=== PATIENT | female | born 2000 | race Caucasian/White ===

== ENCOUNTER 2023-08-05 22:41 | Emergency (ER) | payer BC, SELFPAY ==
[2023-08-05 22:41] VITALS: BP 151/96; PULSE 121; RESP 20; TEMP 36.7; O2SAT 98; BMI 33.8
--- NOTE | 2023-08-05 22:45 | ECG_ITS ---
APPROVED REPORT Exam: Resting ECG HR:101 bpm ECG Measurements Heart Rate 101 AXES HI 152 P 61 QRSd 97 QRS 57 QT 331 T 41 QTc 389 Conclusion SINUS TACHYCARDIA LOW QRS VOLTAGE IN PRECORDIAL LEADS [QRS DEFLECTION < 1.0 mV IN CHEST LEADS] INCOMPLETE RIGHT BUNDLE BRANCH BLOCK [90+ ms QRS DURATION, TERMINAL R IN V1/V2, 40+ ms S IN I/aVL/V4/V5/V6] ABNORMAL RHYTHM ECG UNCONFIRMED REPORT Electronically signed by : Aravind Barriga MD 08/06/2023 19:56:51
[2023-08-05 22:56] LABS: POC Glucose,Bedside 107 (70-110)
--- NOTE | 2023-08-05 22:58 | XR_ITS ---
PROCEDURE INFORMATION: Exam: XR Chest Exam date and time: 08/05/2023 11:29 PM Age: 22 years old Clinical indication: Other: Unresponsive TECHNIQUE: Imaging protocol: Radiologic exam of the chest. Views: 1 view. COMPARISON: No relevant prior studies available. FINDINGS: Lungs: Unremarkable. No consolidation. Pleural spaces: Unremarkable. No pleural effusion. No pneumothorax. Heart/Mediastinum: Unremarkable. No cardiomegaly. Bones/joints: Unremarkable for patient age. IMPRESSION: No acute findings.
[2023-08-05 23:28] LABS: VBG Base Excess 0.3 mmol/L (-2.4-2.3); VBG HCO3 26.2 mmol/L (23-30); VBG Oxygen Saturation 63.3 % (50-70); VBG PH 7.33 mmol/L (7.31-7.41); VBG PO2 32.2 mmol/L (28-40); VBG Total CO2 27.7 mmol/L (23-27)
[2023-08-05 23:30] LABS: VBG PCO2 50.4 mmol/L (35-51)
[2023-08-05 23:36] LABS: Acetone, Serum (Rapid) None Detected (None Detect)
[2023-08-05 23:39] LABS: Basophils % 0.3 % (0.1-2.0); Chloride 97 mmol/L (98-107); Eosinophils # 0.1 K/mm3 (0.0-0.4); Eosinophils % 0.7 % (0.1-12.0); Hematocrit 40.5 % (37.0-47.0); Hemoglobin 12.7 g/dL (12.2-16.2); Lymphocytes # 2.3 K/mm3 (0.7-4.5); Lymphocytes % 17.8 % (10-50); Mean Corpuscular HGB Conc 31.4 g/dL (31.8-35.4); Mean Corpuscular Hemoglobin 29.5 pg (27.0-31.2); Mean Platelet Volume 7.5 fl (7.4-10.4); Monocytes # 0.8 K/mm3 (0.1-1.0); Neutrophils # 9.8 K/mm3 (1.8-7.8); Neutrophils % 75.3 % (37.0-80.0); Platelet Count 309 K/mm3 (142-424); Red Blood Count 4.31 M/mm3 (4.20-5.40); Sodium 136 mmol/L (136-145)
[2023-08-05 23:40] LABS: Potassium 3.7 mmoL/L (3.5-5.1)
[2023-08-05 23:42] LABS: Alanine Aminotransferase 24 U/L (12-78); Alkaline Phosphatase 83 U/L (38-126); Anion Gap 13.7 mEq/L (5-15); Aspartate Amino Transferase 44 U/L (14-36); Bilirubin,Total 0.3 mg/dl (0.2-1.3); Blood Urea Nitrogen 11 mg/dl (7-17); Calcium 8.6 mg/dl (8.4-10.2); Carbon Dioxide 29 mmol/L (22.0-30.0); Creatinine Clearance Estimated 168 mL/min (50-200); Estimated Glomerular Filt Rate 106 ml/min (>60); GFR (African American) 128 ML/MIN (>60); Glucose 98 mg/dl (74-100)
[2023-08-05 23:43] LABS: Activated Partial Thrombo Time 25.6 seconds (22.8-30.6); Albumin Level 4.4 g/dl (3.5-5.0); Albumin/Globulin Ratio 1.6 (1.1-1.8); Globulin 2.7 g/dL (1.3-3.2); Lactic Acid 0.9 mmol/L (0.7-2.1); Lipase 59 U/L (23-300); Total Protein,Serum 7.1 g/dl (6.3-8.2)
[2023-08-05 23:45] LABS: Ethyl Alcohol < 10 mg/dl (0-10); Salicylate < 1.0 mg/dL (2.0-20.0)
[2023-08-05 23:58] LABS: Troponin I 0.04 ng/ml (0.00-0.034)
[2023-08-06 00:03] LABS: T4 (Thyroxine) 10.6 ug/dl (5.53-11.0)
[2023-08-06 00:06] LABS: HCG,Quantitative < 2 mIU/ml (0-5.42)
--- NOTE | 2023-08-06 00:09 | PC.NURSE ---
in room talking with patient at this time.
[2023-08-06 00:16] LABS: Thyroid Stimulating Hormone 5.24 uIU/mL (0.465-4.68)
[2023-08-06 00:36] LABS: Microscopic, Urine URINE MICROSCOPIC (MICROSCOPIC)
[2023-08-06 00:45] LABS: Appearance,Urine CLEAR (Clear); Bilirubin,Urine Negative (Negative); Blood, Urine 3+ (Negative); Color,Urine YELLOW (Yellow); Glucose,Urine (UA) Negative (Negative); Ketones,Urine Negative (Negative); Leukocyte Esterase,Urine Negative (Negative); Nitrate,Urine Negative (Negative); Protein,Urine Negative (Negative); Urobilinogen,Urine 0.2 EU/dl (0.2)
[2023-08-06 00:55] LABS: Barbiturates Screen,Urine Negative ng/ml (<200)
[2023-08-06 00:56] LABS: Benzodiazepines Screen,Urine Negative ng/ml (<200)
[2023-08-06 00:57] LABS: Amphetamine/Metha Screen,Urine Negative ng/ml (<1000); Methadone Screen,Urine Negative ng/ml (<300)
[2023-08-06 00:58] LABS: Cannabinoid Screen,Urine Negative ng/ml (<50)
[2023-08-06 00:59] LABS: Bacteria,Urine 1+ /lpf; Cocaine Screen,Urine Negative ng/ml (<300); Opiate Screen,Urine Negative ng/ml (<300); RBC,Urine 20-50 #/hpf (0-3); WBC,Urine Occasional #/hpf (0-3)
[2023-08-06 01:00] LABS: Phencyclidine Screen,Urine Negative ng/ml (<25)
--- NOTE | 2023-08-06 01:00 | HMH.EDGENADL ---
Discharge Plan Disposition Patient Disposition: Home, Self-Care Condition: Good Prescriptions Prescriptions: No Action buspirone 10 mg tablet 10 mg PO BID Patient Comments: TAKE 1 TABLET BY MOUTH TWICE A DAY vilazodone 20 mg tablet 20 mg PO DAILY Patient Comments: TAKE 1 TABLET BY MOUTH EVERY DAY Referrals Follow up/Referrals: Rama Cox [Primary Care Provider] - See instructions Activity Restrictions/Add. Instructions Additional Instructions/Restrictions: Please follow-up with your primary care provider and with cardiology. Please return to the emergency department if you change your mind about being evaluated or if you develop any new or worsening symptoms or become concerned for your health. Clinical Impressions Clinical Impression: Opiate overdose, Acute non-ST elevation myocardial infarction (NSTEMI) Coma Qualifiers: Coma depth: Chris coma 3-8 Coma timing: in the field (EMT or ambulance) Qualified Code(s): R40.2431 - Chris coma scale score 3-8, in the field [EMT or ambulance] Discharge ED Provider: Thee Carrasquillo General Adult HPI General Chief complaint: Headache Stated complaint: Unresponsive Time Seen by Provider: 08/05/23 23:15 Mode of Arrival: EMS Source of Information: Patient and EMS Limitations: No Limitations Description of Symptoms (Recalled from ER Triage Doc. by RN): Pt states she went to bed this evening feeling fine, does not recall her family trying to wake her. Family called EMS saying she was unresponsive. EMS states when they arrived she was cold and clammy, they bagged her a few times and she woke up. Pt denies any drug use. Pt states she began taken a new medication Vraylar for depression. States she was taking it in the morning but it made her tired throughtout the day, her pcp recommended taking it at night and tonight was the first time it was taken in the evening. Pt only complaint is a headache at this time History of Present Illness HPI narrative: 22-year-old female reported history of prior opiate use presents to the ED after being found unresponsive. History obtained from patient and patient's mother. They report that the patient has history of drug use problems. She was recently in longterm and has been out for a while and has been doing well and remained clean. Patient reports that she found a pill and took it in a moment of weakness . She denies any suicidal ideation. Per EMS report, patient was found by her roommate blue and unresponsive. On EMS arrival patient was unresponsive, tachycardic with strong pulse, cyanotic appearing. Pupils were not pinpoint at that time. They did not administer Narcan. They began BVM with improved coloration and return of consciousness within a couple of minutes. They report that she once awakened was GCS 15. Patient has history of anxiety and depression and is on multiple medications including a new one that was started last week. Patient currently reports mild headache, is very anxious and tearful regarding her situation. Denies chest pain or abdominal pain or shortness of breath. Related Data Home Medications Medication Instructions Recorded Confirmed buspirone 10 mg tablet 10 mg PO BID Depression 08/06/23 08/06/23 vilazodone 20 mg tablet 20 mg PO DAILY Depression 08/06/23 08/06/23 Allergies Allergy/AdvReac Type Severity Reaction Status Date / Time No Known Allergies Allergy Verified 08/05/23 22:56 [facility] Disclaimer: The information contained in this section may have been updated after the patient was seen, as this information can be updated by other users. Medical History (Updated 08/06/23 @ 02:54 by Kodi Montes MD) Anxiety Depression History of drug abuse in remission Surgical History (Updated 08/06/23 @ 00:07 by Aaron Woods, RN) No history of previous surgery Family History (Updated 08/06/23 @ 00:07 by Aaron Woods RN) Other No significant family history Socia
--- NOTE | 2023-08-06 01:58 | PC.NURSE ---
Repeat troponin sent to lab
[2023-08-06 02:22] LABS: Troponin I 0.08 ng/ml (0.00-0.034)
[2023-08-06 03:02] VITALS: BP 117/81; PULSE 83; RESP 19; TEMP 36.9; O2SAT 97
--- NOTE | 2023-08-06 19:17 | PC.NURSE ---
chart accessed for face sheet to fax to [facility]
== END 2023-08-06 03:03 | disposition home or self-care (01) ==
PROVIDERS: Emergency Medicine; Emergency Provider Emergency Medicine; PCP Student in an Organized Health Care Education/Training Program
DX: I21.4 Non-ST elevation (NSTEMI) myocardial infarction (principal); T40.2X1A Poisoning by other opioids, accidental (unintentional), initial encounter; R40.2431 Glasgow coma scale score 3-8, in the field [EMT or ambulance]; R00.0 Tachycardia, unspecified; I45.19 Other right bundle-branch block; F41.9 Anxiety disorder, unspecified; F32.A Depression, unspecified; F17.200 Nicotine dependence, unspecified, uncomplicated
CPT/HCPCS: 36415; 71045; 80053; 80305; 80329; 81001; 82009; 82803; 82962; 83605; 83690; 84436; 84443; 84484; 84702; 85025; 85730; 93005; 96360; 99291

== ENCOUNTER → 2023-08-07 15:57 | Outpatient (CLI) | payer BC, SELFPAY ==
[2023-08-07 18:28] LABS: Thyroid Stimulating Hormone 0.69 uIU/mL (0.465-4.68)
== END ==
PROVIDERS: PCP Student in an Organized Health Care Education/Training Program; Visit Provider Physician Assistant
DX: R06.03 Acute respiratory distress (principal); R79.89 Other specified abnormal findings of blood chemistry; Z78.9 Other specified health status
CPT/HCPCS: 36415; 84439; 84443; 93225

== ENCOUNTER → 2023-08-12 15:19 | Outpatient (CLI) | payer BC, SELFPAY ==
--- NOTE | 2023-08-12 16:02 | US_ITS ---
FINAL REPORT TECHNIQUE: Sonographic images of the thyroid gland were obtained in the longitudinal and transverse planes. CLINICAL HISTORY: respiratory distress /abnl ecg FINDINGS: The right lobe measures 4.8 x 1.1 x 1.5 cm. The right lobe is homogeneous. There is a small, 4 mm hypoechoic nodule in the lower pole. The left lobe measures 4.9 x 1.1 x 1.8 cm. The left lobe is homogeneous. There are no cystic or solid nodules. The isthmus measures 0.2 cm. This is normal. IMPRESSION: 1. TIRADS category 4 nodule right lobe. Based on size, there are no current recommendations regarding follow up. Reviewed, Interpreted and Dictated by Diamante Chauhan MD Transcribed by Mary Jane Julien Authenticated and . [facility]
--- NOTE | 2023-08-12 16:16 | CA_ITS ---
APPROVED REPORT Exam: Exercise Treadmill Technologist: Brenda Dan Ht: 5 ft 2 in Wt: 101 lbs BSA: 1.43 m2 HR: 78 bpm BP: 124/75 mmHg Rhythm: NSR Indications: Abnormal EKG Stress Test Details Test: Timothy HR Resting HR: 80 bpm Max Heart Rate (APMHR): 199 bpm Max HR Achieved: 157 bpm Target HR (85% APMHR): 169 bpm % of APMHR: 79 Recovery HR: 102 bpm HR response to stress: Blunted HR response to stress BP Resting BP: 124.0/75.0 mmHg Max BP: 162.0/80.0 mmHg Recovery BP: 127.0/78.0 mmHg BP response to stress: Normal blood pressure response to stress. ECG Resting ECG: Sinus rhythm Stress EC.[address] depression Arrhythmia: None Recovery ECG: Return to baseline within 3 minutes of recovery Recovery Arrhythmia: None Clinical Exercise duration: 07:33 min Highest Stage Achieved: Exercise capacity: 10.1 METs Overall Exercise Capacity for Age: Average Stress ECG Conclusion This was a suboptimal stress test as the patient was unable to achieve target HR. The patient was able to exercise for a total of 7 minutes, 33 seconds. She achieved a total of 10.1 METS. She has average exercise capacity compared to age and sex matched peers. She has blunted HR, but normal BP, response to exercise. Symptoms: Leg fatigue, Dyspnea Arrhythmias/Ectopy: None ST-T Changes: 0.[address] depression Conclusion: Suboptimal and nondiagnostic stress test as the patient was unable to achieve target HR. Average exercise capacity. No significant ST changes at level of HR achieved. As this was a nondiagnostic ECG stress test, further evaluation with alternative diagnostic modalities (e.g. CCTA) is recommended, if clinically indicated. Test Summary REST . . . . . . . Sitting REST 03:10 0.0 0.0 80 . 124/ 75 . . Stage 1 01:00 10.0 1.7 107 . . . . Stage 1 02:00 10.0 1.7 108 . . . . Stage 1 03:00 10.0 1.7 112 . 118/ 68 . . Stage 2 01:00 12.0 2.5 125 . . . . Stage 2 02:00 12.0 2.5 131 . . . . Stage 2 03:00 12.0 2.5 132 . 130/ 78 . . Stage 3 01:00 14.0 3.4 148 . . . . Stage 3 01:33 14.0 3.4 157 . . . Stop exercise at 07:33 RECOVERY 01:00 0.0 0.0 133 . 162/ 80 . . RECOVERY 02:00 0.0 0.0 110 . 162/ 80 . . RECOVERY 03:00 0.0 0.0 108 . 117/ 84 . . RECOVERY 04:00 0.0 0.0 102 . 117/ 84 . . RECOVERY 05:00 0.0 0.0 105 . 139/ 69 . . RECOVERY 06:00 0.0 0.0 104 . 139/ 69 . . RECOVERY 07:00 0.0 0.0 95 . 127/ 78 . . RECOVERY 08:00 0.0 0.0 99 . 127/ 78 . . RECOVERY 08:33 0.0 0.0 101 . 127/ 78 . . Electronically signed by : Amina Hernandez MD 08/18/2023 23:13:28
== END ==
PROVIDERS: PCP Student in an Organized Health Care Education/Training Program; Visit Provider Physician Assistant
DX: R06.03 Acute respiratory distress (principal); R79.89 Other specified abnormal findings of blood chemistry; Z78.9 Other specified health status
CPT/HCPCS: 76536; 93017

== ENCOUNTER → 2023-08-29 10:10 | Outpatient (CLI) | payer BC, SELFPAY ==
--- NOTE | 2023-08-29 10:11 | CA_ITS ---
APPROVED REPORT EXAM: Comprehensive 2D, Doppler, and color-flow Echocardiogram It Infrastructure Manager: Corina Newman RVT Ht: 5 ft 2 in Wt: 181lbs BSA: 1.83 BP: 127/80 mmHg Indications: ABN EKG,SOA,,HX RESP DISTRESS,SMOKER 2D Dimensions LVOT 1.95 cm (M/F) 1.5-2.5 LA Volume 37.70 mL LA Volume Index 20.60 mL/m2 (M/F) 16-34 M-Mode Dimensions RVDd 3.54 cm (0.9-2.6) LA Diam 2.99 cm (1.9-4.0) LVDd 4.76 cm (3.5-5.7) Ao Diam 2.93 cm (2.0-3.7) LVDs 3.08 cm (3.5-5.7) IVSd 0.62 cm (0.6-1.1) PWd 0.32 cm (0.6-1.1) EF (Teich) 64.60% FS 35.30% EDV (Teich) 105.40 mL TAPSE 2.18 (<1.7) ESV (Teich) 37.30 mL LV Diastology E Decel Time 150.00 (160-240 msec) E/A Ratio 1.9 MED E' 12.10 (< 7 cm/sec) E'/MED E' Ratio 9.31 (>14) LAT E' 18.40 (<10 cm/sec) E/LAT E' Ratio 6.12 (>14) Aortic Valve AO Peak GR. 7.30 mmHg Mitral Valve MV E Max Dino. 113.00 (40-130 cm/s) MV A Velocity 60.00 (40-130 cm/s) E/A Ratio 1.88 MV Decel. Time 150.00 (160-240 ms) MV PHT 44.00 ms Pulmonary Valve PV Peak Velocity 86.00 (50-150 cm/s) Tricuspid Valve TR P. Velocity 232.00 cm/s RAP Estimate 10.00 mmHg RVSP 31.50 mmHg Left Ventricle The left ventricle is normal size. The left ventricular systolic function is normal. The left ventricular ejection fraction is within the normal range. There is normal left ventricular wall thickness. There is normal LV segmental wall motion. The left ventricular diastolic function is normal. LVEF is 55%. Right Ventricle Right ventricle is mildly dilated. The right ventricular systolic function is normal. Atria The left atrium size is normal. The right atrium size is normal. There is no Doppler evidence of interatrial shunt. Aortic Valve The aortic valve opens well. There is no aortic valvular stenosis. No aortic regurgitation is present. Mitral Valve The mitral valve is normal in structure. No evidence of mitral valve stenosis. Mild mitral regurgitation. Tricuspid Valve The tricuspid valve leaflets are thin and pliable. Mild tricuspid regurgitation. RVSP is 20-25 mmHg. Pulmonic Valve The pulmonary valve is normal in structure. Trace pulmonic regurgitation. Great Vessels The aortic root is normal in size. The ascending aorta is normal in size. IVC is normal in size and collapses >50% with inspiration. Pericardium There is no pericardial effusion. Other Information Study Quality: Fair Conclusion Normal biventricular systolic function. Mild MR, mild TR. Electronically signed by : Amina Hernandez MD 08/31/2023 17:14:44
== END ==
PROVIDERS: PCP Student in an Organized Health Care Education/Training Program; Visit Provider Physician Assistant
DX: R06.03 Acute respiratory distress (principal); R79.89 Other specified abnormal findings of blood chemistry; Z78.9 Other specified health status
CPT/HCPCS: 93306